=== PATIENT | male | born 1955 | race Caucasian/White ===

== ENCOUNTER → 2019-08-04 | Day surgery (SDC) | payer MEDICARE, BC ==
[~2019-08-04] MED LIST: ALBU0.63 NEB; ALBU2.5V8 INH; ALPR0.254 PO; ASPI-482 PO; BENR30SY SQ; IV RINGERS,LACTATED 1000ML 1,000 ML IV SCH; LISI-338 PO; LISI1TAB19 PO; MONT10TA49 PO; PROPOFOL 40 ML IV ONE; TIOT18CA IH
[2019-08-04 08:25] VITALS: BP 111/68
--- NOTE | 2019-08-05 00:02 | CONS ---
DATE OF CONSULTATION: 08/04/2019 GASTROINTESTINAL CONSULTATION REFERRING PHYSICIAN: Dr. Hernan Pham. REASON: Positive Cologuard. HISTORY OF PRESENT ILLNESS: A 64-year-old male with past medical history significant for hypertension, COPD and osteoarthrosis, seen for positive Cologuard. Bowel habits have been regular without diarrhea or constipation. There has been no melena and/or hematochezia. Weight and appetite are stable. No family history of colon cancer, polyps, is elicited. He has not undergone previous screening studies. He has no additional complaints. PAST MEDICAL HISTORY: COPD, hypertension, anxiety. ALLERGIES: None. MEDICATIONS: Include albuterol, alprazolam, aspirin, Fasenra, lisinopril, hydrochlorothiazide, montelukast and Spiriva inhaler. FAMILY HISTORY: Noncontributory. PAST SURGICAL HISTORY: Noncontributory. REVIEW OF SYSTEMS: Per records. PHYSICAL EXAMINATION: GENERAL: Reveals a well-nourished, well-developed male. VITAL SIGNS: Temperature is 97.9, pulse 100, respirations 22, pulse oximetry 93% on room air. HEENT: There is no decrease in the visual acuity issues. LUNGS: Reveal decreased breath sounds. CARDIOVASCULAR: S1, S2 without S3, S4 or appreciable murmur. ABDOMEN: Reveals a soft abdomen. Normoactive bowel sounds without appreciable hepatosplenomegaly. EXTREMITIES: No cyanosis, clubbing, edema. IMPRESSION: Positive Cologuard. Colonoscopy is recommended to assess for polyps and/or malignancy. Risks and benefits have been discussed with the patient including risk of hemorrhage and perforation and is willing to proceed. DANIEL MCLAIN MD DR: CHALINO/shantelle JOB#: [id number] / [id number] HERNAN Nugent MD
== END ==
LOC: ENDOS 06:26
PROVIDERS: ATTEND Internal Medicine Gastroenterology
DX: R19.5 Other fecal abnormalities (principal); K57.30 Diverticulosis of large intestine without perforation or abscess without bleeding; K64.0 First degree hemorrhoids; F44.9 Dissociative and conversion disorder, unspecified; I10 Essential (primary) hypertension; F41.9 Anxiety disorder, unspecified
CPT/HCPCS: 45378; J2704